=== PATIENT | male | born 1970 | race American Indian/Alaskan Native ===

== ENCOUNTER 2017-02-28 11:25 | Emergency (ER) | payer OTHER ==
[2017-02-28 11:43] VITALS: BP 127/79
[2017-02-28 12:16] LABS: Basophils % (Auto) 0.7 % (0.0-1.8); Eosinophils % (Auto) 1.5 % (0.0-4.3); Hematocrit 43.5 % (35.5-45.6); Hemoglobin 14.7 gm/dl (11.8-15.2); Mean Corpuscular HGB Conc 34 % (32-34); Mean Corpuscular Hemoglobin 29 pg (28-32); Mean Corpuscular Volume 86 fl (84-94); Platelet Count 199 K/mm3 (140-440); Red Blood Count 5.07 M/mm3 (3.65-5.03); Red Cell Distribution Width 13.5 % (13.2-15.2); White Blood Count 3.1 K/mm3 (4.5-11.0)
[2017-02-28 12:25] LABS: INR 1.12 (0.87-1.13)
[2017-02-28 12:26] LABS: Partial Thromboplastin Time 31.7 Sec. (24.2-36.6)
[2017-02-28 12:29] LABS: Anion Gap 14 mmol/L; Blood Urea Nitrogen 10 mg/dL (9-20); Calcium 8.8 mg/dL (8.4-10.2); Carbon Dioxide 29 mmol/L (22-30); Glucose 102 mg/dL (75-100); Potassium 3.9 mmol/L (3.6-5.0); Sodium 141 mmol/L (137-145)
--- NOTE | 2017-03-01 09:19 | ED Elopement Review ---
ED Pt Elopement review - Results review Lab results: Laboratory Tests 02/28/17 02/28/17 02/28/17 11:55 11:55 11:55 WBC 3.1 L RBC 5.07 H Hgb 14.7 Hct 43.5 MCV 86 MCH 29 MCHC 34 RDW 13.5 Plt Count 199 Lymph % (Auto) 41.9 H Coffey % (Auto) 9.2 H Eos % (Auto) 1.5 Baso % (Auto) 0.7 Lymph # 1.3 Coffey # 0.3 Eos # 0.0 Baso # 0.0 Seg Neutrophils % 46.7 Seg Neutrophils # 1.5 L PT 14.3 INR 1.12 APTT 31.7 Sodium 141 Potassium 3.9 Chloride 102.0 Carbon Dioxide 29 Anion Gap 14 BUN 10 Creatinine 1.0 Estimated GFR > 60 BUN/Creatinine Ratio 10.00 Glucose 102 H Calcium 8.8 Troponin T < 0.010 - Call Back decision Pt Call Back Decision: No action required
== END 2017-02-28 12:00 | disposition left against medical advice (07) ==
LOC: ED 11:25
DX: R07.9 Chest pain, unspecified (principal); I25.2 Old myocardial infarction; I10 Essential (primary) hypertension; E78.00 Pure hypercholesterolemia, unspecified; Z87.891 Personal history of nicotine dependence; Z53.21 Procedure and treatment not carried out due to patient leaving prior to being seen by health care provider
CPT/HCPCS: 36415; 80048; 84484; 85025; 85610; 85730; 93005; 93010

== ENCOUNTER 2017-03-14 21:42 | Emergency (ER) | payer OTHER ==
[2017-03-14 21:52] VITALS: BP 152/89
[2017-03-14] MEDS ORDERED: FUL-GLO OP ONE ×2 (22:42→22:45)
[2017-03-14] MEDS ORDERED: TETRACAINE 0.5% ONE (22:42)
[2017-03-14] MEDS ORDERED: TETRACAINE 0.5% OU STA (22:45)
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
== END 2017-03-14 23:35 | disposition home or self-care (01) ==
LOC: ED 21:42
DX: T20.00XA Burn of unspecified degree of head, face, and neck, unspecified site, initial encounter (principal); S00.81XA Abrasion of other part of head, initial encounter; I10 Essential (primary) hypertension; I25.2 Old myocardial infarction; X58.XXXA Exposure to other specified factors, initial encounter; Y93.9 Activity, unspecified; Y92.9 Unspecified place or not applicable; Y99.9 Unspecified external cause status
CPT/HCPCS: 99283

== ENCOUNTER 2019-02-10 17:03 | Observation (INO) | payer SELFPAY ==
--- NOTE | 2019-02-10 17:28 | Emergency Department Report ---
Blank Doc - Documentation Documentation: This is a 48-year-old male that presents with chest pain with SOB. STated rad iates to left shoulder and back. HX of stents and IN. This initial assessment/diagnostic orders/clinical plan/treatment(s) is/are subject to change based on patient's health status, clinical progression and re- assessment by fellow clinical providers in the ED. Further treatment and workup at subsequent clinical providers discretion. Patient/guardians urged not to elope from the ED as their condition may be serious if not clinically assessed and managed. Initial orders include: 1- Patient sent to MAIN ED for further evaluation and treatment 2- EKG 3- CXR 4- labs
[2019-02-10 18:11] LABS: Basophils % (Auto) 0.7 % (0.0-1.8); Eosinophils # (Auto) 0.1 K/mm3 (0.0-0.4); Eosinophils % (Auto) 1.6 % (0.0-4.3); Hematocrit 42.7 % (35.5-45.6); Hemoglobin 14.8 gm/dl (11.8-15.2); Lymphocytes # (Auto) 1.6 K/mm3 (1.2-5.4); Lymphocytes % (Auto) 39.8 % (13.4-35.0); Mean Corpuscular HGB Conc 35 % (32-34); Mean Corpuscular Volume 85 fl (84-94); Monocytes # (Auto) 0.4 K/mm3 (0.0-0.8); Monocytes % (Auto) 9.5 % (0.0-7.3); Platelet Count 182 K/mm3 (140-440); Red Cell Distribution Width 13.7 % (13.2-15.2)
[2019-02-10 18:24] LABS: INR 0.9 (0.87-1.13)
[2019-02-10 18:25] LABS: Partial Thromboplastin Time 27.8 Sec. (24.2-36.6)
[2019-02-10 19:45] LABS: BUN/Creatinine Ratio 15; Blood Urea Nitrogen 18 mg/dL (9-20); Calcium 9.2 mg/dL (8.4-10.2); Hemolysis Index 31
--- NOTE | 2019-02-10 20:07 | XRay Report ---
PROCEDURE: XR CHEST ROUTINE 2V TECHNIQUE: PA and lateral view of the chest were obtained. HISTORY: Chest Pain COMPARISONS: Prior chest x-ray 09/26/2016 FINDINGS: Heart size upper normal. Coronary artery stent appears to be visualized. Lungs are clear. No infiltra preeti masses effusions or pneumothorax are visualized. No acute bone abnormalities are identified. IMPRESSION: Heart size upper normal. Coronary artery stent in place. No other abnormalities are identified.. This document is electronically signed by Maynor Arcos MD., February 10 2019 08:05:10 PM ET
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
[2019-02-10] MEDS ORDERED: ZESTRIL ONE (21:04)
[2019-02-10] MEDS: ZESTRIL PO SCH (21:05)
[2019-02-10] MEDS ORDERED: APRESOLINE IV PRN (22:16)
--- NOTE | 2019-02-10 22:19 | History and Physical Report ---
History of Present Illness Date of examination: 02/10/19 Date of admission: 02/10/19 20:27 Chief complaint: Chest pain. 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 CXR negative. he sees DR Weisntein [facility].His BP tonight 180/99, and bradycardic.Admitted at this time, to r/o OR. Will set up for a stress test in am, if safe, and no EKG changes.If cardiac w/up negative, will look into [facility], and d/c home.Will try on hydralazine iv tonight. Past History Past Medical History: CAD Social history: , lives with family Medications and Allergies Allergies Allergy/AdvReac Type Severity Reaction Status Date / Time No Known Allergies Allergy Verified 02/10/19 17:28 Home Medications Medication Instructions Recorded Confirmed Last Taken Type Aspirin [Aspirin BABY CHEW TAB] 81 mg PO QDAY #30 tab.chew 03/15/16 09/26/16 Unknown Rx AtorvaSTATin [Lipitor] 40 mg PO QHS #30 tablet 03/15/16 09/26/16 Unknown Rx Lisinopril [Zestril TAB] 40 mg PO QDAY #30 tablet 03/15/16 09/26/16 Unknown Rx Ticagrelor [Brilinta] 90 mg PO BID #30 tablet 03/15/16 09/26/16 Unknown Rx amLODIPine [Norvasc] 20 mg PO QDAY 09/26/16 09/26/16 Unknown History Ibuprofen [Motrin] 600 mg PO Q8H PRN #30 tablet 03/14/17 Unknown Rx Mineral Oil/Hydrophil Petrolat 50 gm TP Q4HR PRN #2 oint...g. 03/14/17 Unknown Rx [Aquaphor Healing Ointment] Polyvinyl Alcohol [Artificial 15 ml OP Q1HR PRN #200 drops 03/14/17 Unknown Rx Tears] oxyCODONE [Roxicodone] 5 mg PO Q6HR PRN #15 tablet 03/14/17 Unknown Rx Active Meds: Active Medications Lisinopril (Zestril) 40 mg PO QDAY MONIKA Last Admin: 02/10/19 21:05 Dose: 40 mg Documented by: Review of Systems Cardiovascular: chest pain Exam - Constitutional Vitals: Temp Pulse Resp BP Pulse Ox 98.4 F 60 16 175/100 98 02/10/19 17:28 02/10/19 21:05 02/10/19 20:57 02/10/19 21:05 02/10/19 20:57 General appearance: Present: mild distress, well-nourished - EENT Eyes: Present: PERRL ENT: hearing intact, clear oral mucosa - Neck Neck: Present: supple, normal ROM - Respiratory Respiratory effort: normal Respiratory: bilateral: CTA - Cardiovascular Heart Sounds: Present: S1 & S2. Absent: rub, click - Extremities Extremities: pulses symmetrical, No edema Peripheral Pulses: within normal limits - Abdominal General gastrointestinal: Present: soft, non-tender, non-distended, normal bowel sounds Male genitourinary: Present: deferred - Rectal Rectal Exam: deferred - Integumentary Integumentary: Present: clear, warm, dry - Musculoskeletal Musculoskeletal: gait normal, strength equal bilaterally - Psychiatric Psychiatric: appropriate mood/affect, intact judgment & insight - Neurologic Neurologic: CNII-XII intact, moves all extremities Results - Labs CBC & Chem 7: 02/10/19 17:54 02/10/19 17:54 Labs: Abnormal lab results 02/10/19 Range/Units 17:54 WBC 3.9 L (4.5-11.0) K/mm3 MCHC 35 H (32-34) % Lymph % (Auto) 39.8 H (13.4-35.0) % Crosby % (Auto) 9.5 H (0.0-7.3) % Assessment and Plan - Patient Problems (1) Chest pain Current Visit: Yes Status: Acute Plan to address problem: see plans. (2) Abnormal EKG Current Visit: No Status: Acute Plan to address problem: see note (3) CAD (coronary artery disease) Current Visit: No Status: Acute Plan to address problem: Follow cardiology. (4) Hyperlipidemia Current Visit: No Status: Acute Plan to address problem: statin. (5) Hypertensive urgency Current Visit: No Status: Acute Plan to address problem: BP control. (6) Left arm numbness Current Visit: No Status: Acute Plan to address problem: Continue w/up for CP.
[2019-02-10] MEDS ORDERED: ROXICODONE PO PRN (22:28)
[2019-02-10] MEDS ORDERED: IBUPROFEN PO PRN (22:28)
--- NOTE | 2019-02-11 02:36 | XRay Report ---
PROCEDURE: XR SHOULDER 1V RT TECHNIQUE: Single AP external rotation view of the right shoulder. HISTORY: Pain. COMPARISONS: None available. FINDINGS: Normal osseous mineralization. Mild degenerative changes of the acromioclavicular joint. Mild scleros is and cystic changes in the greater tuberosity may be secondary to underlying rotator cuff degenerat ion. No significant glenohumeral joint degenerative change. The right lung is clear. Sclerotic foci o verlies the inferior glenoid, probable bone island. IMPRESSION: 1. No acute fracture or dislocation. 2. Mild acromioclavicular degenerative changes and mild sclerosis of the greater tuberosity.. This document is electronically signed by Ghulam Gutierrez DO., February 11 2019 02:34:51 AM ET
--- NOTE | 2019-02-11 02:37 | XRay Report ---
PROCEDURE: XR SHOULDER 1V LT TECHNIQUE: Single, externally rotated AP projection of the left shoulder. HISTORY: Pain. COMPARISONS: None available. FINDINGS: Normal osseous mineralization. No fracture or dislocation. Mild left acromioclavicular joint degenera tive changes. Left lung clear. Probable mild aortic arch atherosclerotic vascular calcifications. IMPRESSION: 1. Mild acromioclavicular degenerative changes, no acute osseous abnormality. 2. Mild atherosclerotic vascular calcifications.. This document is electronically signed by Ghulam Gutierrez DO., February 11 2019 02:36:15 AM ET
[2019-02-11] MEDS ORDERED: NORVASC PO SCH (10:00)
[2019-02-11] MEDS ORDERED: PLAVIX PO SCH (10:00)
[2019-02-11] MEDS ORDERED: ZESTRIL PO SCH (10:00)
[2019-02-11] MEDS ORDERED: BABY ASPIRIN PO SCH (10:00)
[2019-02-11 12:58] VITALS: BP 147/86
[2019-02-11] MEDS: ZESTRIL PO SCH (13:46)
--- NOTE | 2019-02-11 17:45 | Consultation ---
History of Present Illness Consult date: 02/11/19 Consult reason: chest pain History of present illness: The patient is a 48-year-old man with a history of coronary artery disease, who underwent two-vessel coronary angioplasty and stenting of the circumflex and distal right coronary arteries in 2016. Since then, he has done well, has maintained outpatient follow-up. His last stress test was several months ago. He presents to the hospital at this time with atypical chest pain. 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 He specifically states that the pain is not reminiscent of his previous angina. He otherwise looks and feels well, wants to go home for continued outpatient follow-up. EKG is normal sinus rhythm, left ventricle hypertrophy with nonspecific repolarization changes of LVH. Past History Past Medical History: CAD, hypertension Social history: , lives with family Medications and Allergies Allergies Allergy/AdvReac Type Severity Reaction Status Date / Time No Known Allergies Allergy Verified 02/10/19 17:28 Home Medications Medication Instructions Recorded Confirmed Last Taken Type Aspirin [Aspirin BABY CHEW TAB] 81 mg PO QDAY #30 tab.chew 03/15/16 02/10/19 Unknown Rx AtorvaSTATin [Lipitor] 40 mg PO QHS #30 tablet 03/15/16 02/10/19 Unknown Rx Lisinopril [Zestril TAB] 40 mg PO QDAY #30 tablet 03/15/16 02/10/19 Unknown Rx amLODIPine [Norvasc] 20 mg PO QDAY 09/26/16 02/10/19 Unknown History Ibuprofen [Motrin] 600 mg PO Q8H PRN #30 tablet 03/14/17 02/10/19 Unknown Rx Polyvinyl Alcohol [Artificial 15 ml OP Q1HR PRN #200 drops 03/14/17 02/10/19 Unknown Rx Tears] oxyCODONE [Roxicodone] 5 mg PO Q6HR PRN #15 tablet 03/14/17 02/10/19 Unknown Rx Clopidogrel [Plavix] 75 gm PO QDAY 02/10/19 02/10/19 Unknown History Review of Systems Cardiovascular: chest pain, no orthopnea, no palpitations, no rapid/irregular heart beat, no edema, no syncope, no lightheadedness, no shortness of breath Physical Examination Vital Signs Temp Pulse Resp BP Pulse Ox 98.4 F 57 L 16 151/82 100 02/10/19 17:28 02/10/19 17:28 02/10/19 17:28 02/10/19 17:28 02/10/19 17:28 General appearance: no acute distress HEENT: Positive: PERRL Neck: Positive: neck supple Cardiac: Positive: Reg Rate and Rhythm Lungs: Positive: clear to auscultation Neuro: Positive: Grossly Intact Abdomen: Positive: Soft Male genitourinary: Positive: deferred Skin: Positive: Clear Extremities: Absent: edema Results 02/10/19 17:54 02/10/19 17:54 Coagulation 02/10/19 Range/Units 17:54 PT 12.7 (12.2-14.9) Sec. INR 0.90 (0.87-1.13) APTT 27.8 (24.2-36.6) Sec. CBC 02/10/19 Range/Units 17:54 WBC 3.9 L (4.5-11.0) K/mm3 RBC 5.00 (3.65-5.03) M/mm3 Hgb 14.8 (11.8-15.2) gm/dl Hct 42.7 (35.5-45.6) % Plt Count 182 (140-440) K/mm3 Lymph # 1.6 (1.2-5.4) K/mm3 [place] # 0.4 (0.0-0.8) K/mm3 Eos # 0.1 (0.0-0.4) K/mm3 Baso # 0.0 (0.0-0.1) K/mm3 Comprehensive Metabolic Panel 02/10/19 Range/Units 17:54 Sodium 138 (137-145) mmol/L Potassium 3.9 (3.6-5.0) mmol/L Chloride 100.3 (98-107) mmol/L Carbon Dioxide 25 (22-30) mmol/L BUN 18 (9-20) mg/dL Creatinine 1.2 (0.8-1.5) mg/dL Glucose 83 (75-100) mg/dL Calcium 9.2 (8.4-10.2) mg/dL EKG interpretations - Telemetry EKG Rhythm: Sinus Rhythm Assessment and Plan - Patient Problems (1) Chest pain Status: Acute Plan to address problem: Chest pain is atypical, patient looks and feels better, wants to go home and continue any further testing as outpatient. Ok to discharge, follow-up in my office in 3-5 days. He is advised to return immediately to the emergency room if any further chest pain.
--- NOTE | 2019-02-11 19:17 | Discharge Summary ---
Providers - Providers Date of Admission: 02/10/19 20:27 Date of discharge: 02/11/19 Attending physician: AMY TORRES 02/10/19 23:01 Consult to Physician [CONS] Routine Comment: Consulting Provider: DAX ASHBY Physician Instructions: Reason For Exam: Chest pain./CAD.Stent. Primary care physician: [facility], Hospitalization Reason for admission: Chest pain, r/o NM Condition: Stable Hospital course: Patient seen, resting in bed, records reviewed, case d/w patient, and with Cardiology, DR Ashby. Patient presented to the ER with CC of CP, admitted, to r/o NM EKG/cardiac enzymes reviewed ,and d/w cardiology. His BP was high, and treated accordingly.Next day, patient , c/o no more CP, stress test rec as out patient instead by Cardiology. Patient was therefore d/c home ,to follow up in 1 week. Disposition: TO HOME OR SELFCARE - Discharge Diagnoses (1) Chest pain Status: Resolved (2) Abnormal EKG Status: Chronic (3) CAD (coronary artery disease) Status: Chronic (4) Hyperlipidemia Status: Chronic (5) Hypertensive urgency Status: Resolved (6) Left arm numbness Status: Resolved Core Measure Documentation - Palliative Care Palliative Care/ Comfort Measures: Not Applicable - Core Measures Any of the following diagnoses?: none Exam - Constitutional Vitals: Temp Pulse Resp BP Pulse Ox 97.6 F 58 L 20 147/86 99 02/11/19 07:59 02/11/19 07:59 02/11/19 07:59 02/11/19 07:59 02/11/19 07:59 General appearance: Present: no acute distress, well-nourished - EENT Eyes: Present: PERRL ENT: hearing intact, clear oral mucosa - Neck Neck: Present: supple, normal ROM - Respiratory Respiratory effort: normal Respiratory: bilateral: CTA - Cardiovascular Heart Sounds: Present: S1 & S2. Absent: rub, click - Extremities Extremities: pulses symmetrical, No edema Peripheral Pulses: within normal limits - Abdominal General gastrointestinal: Present: soft, non-tender, non-distended, normal bowel sounds Male genitourinary: Present: deferred - Rectal Rectal Exam: deferred - Integumentary Integumentary: Present: clear, warm, dry - Musculoskeletal Musculoskeletal: gait normal, strength equal bilaterally - Psychiatric Psychiatric: appropriate mood/affect, intact judgment & insight - Neurologic Neurologic: CNII-XII intact, moves all extremities Plan Activity: no restrictions Diet: low cholesterol, low salt Follow up with: AMY TORRES DO [Staff Physician] - 7 Days
== END 2019-02-11 14:16 | disposition home or self-care (01) ==
LOC: ED 17:03 → 4A 20:27
PROVIDERS: ADMIT Internal Medicine Hematology & Oncology; ATTEND Internal Medicine Hematology & Oncology
DX: I25.10 Atherosclerotic heart disease of native coronary artery without angina pectoris (principal); R94.31 Abnormal electrocardiogram [ECG] [EKG]; E78.5 Hyperlipidemia, unspecified; I16.0 Hypertensive urgency; R20.0 Anesthesia of skin; I10 Essential (primary) hypertension; Z87.891 Personal history of nicotine dependence
CPT/HCPCS: 36415; 71046; 73020; 80048; 84484; 85025; 85610; 85730; 93005; 93010; 99284; G0378; J0360

== ENCOUNTER 2020-09-04 11:30 | Outpatient (CLI) | payer OTHER ==
--- NOTE | 2020-09-05 17:54 | XRay Report ---
CHEST 2 VIEWS INDICATION / CLINICAL INFORMATION: Cough. COMPARISON: None available. FINDINGS: SUPPORT DEVICES: None. HEART / MEDIASTINUM: No significant abnormality. LUNGS / PLEURA: No significant pulmonary or pleural abnormality. No pneumothorax. ADDITIONAL FINDINGS: No significant additional findings. IMPRESSION: 1. No acute findings. Signer Name: Darryl Ann MD Signed: 09/04/2020 4:18 PM Workstation Name: [id number]
== END 2020-09-04 11:31 | disposition home or self-care (01) ==
LOC: XRAY 11:30
PROVIDERS: ATTEND Internal Medicine Hematology & Oncology
DX: R05 Cough (principal)
CPT/HCPCS: 71046

== ENCOUNTER 2020-09-06 12:40 | Outpatient (CLI) | payer OTHER | END 2020-09-06 12:41 | disposition home or self-care (01) | LOC: CARD 12:40 | PROVIDERS: ATTEND Internal Medicine Hematology & Oncology | DX: I51.7 Cardiomegaly (principal); R00.1 Bradycardia, unspecified; I25.10 Atherosclerotic heart disease of native coronary artery without angina pectoris; Z95.828 Presence of other vascular implants and grafts | CPT/HCPCS: 93005 ==